=== PATIENT | male | born 1965 | race Caucasian/White ===

== ENCOUNTER → 2019-04-25 | Outpatient (CLI) | payer OTHER ==
--- NOTE | 2019-04-25 15:52 | KCIC ---
Study: MRI of the left hand without contrast INDICATION: Decreased car knocker strength after prior third and fourth digit trigger finger release performed in 2016. COMPARISON: No MRIs available for comparison. TECHNIQUE: Multiplanar MR imaging of the left hand performed without contrast. FINDINGS: Bones/cartilage: No acute fracture. No significant degenerative changes. Marrow signal is within normal limits. Ligaments: Subtle scar tissue seen in the expected location of the A1 pulleys at the third and fourth metacarpal heads. The adequately evaluated pulleys more distally involving the third and fourth digits as well as the second digit are not abnormally thickened. No soft tissue edema surrounding the surgically altered pulleys. No susceptibility artifact seen in these regions to suggest a retained metallic foreign body. The capsuloligamentous structures of the MCP, PIP and DIP joints are unremarkable. Musculotendinous: The flexor digitorum profundus and superficialis are normally located and of normal caliber. The extensor complex is unremarkable. No abnormal peritendinous edema throughout. Miscellaneous: No significant joint effusion. IMPRESSION: 1. In keeping with prior third and fourth digit trigger finger surgery, mild scar tissue is seen in the expected location of the A1 pulleys. The traversing flexor tendons are normally located and normal in caliber and there is no MR correlate for the patient's decreased car knocker strength. No findings to suggest a retained metallic foreign body. 2. Unremarkable osseous structures which are without significant degenerative change. Electronically signed by: DIANELYS RUBY MD (04/25/2019 3:49 PM) [id number]
== END | disposition home or self-care (01) ==
LOC: KCIC MRI 14:12
PROVIDERS: ATTEND Family Medicine
DX: M65.332 Trigger finger, left middle finger (principal); M65.342 Trigger finger, left ring finger
CPT/HCPCS: 73218